=== PATIENT | male | born 1975 | race Caucasian/White ===

== ENCOUNTER 2024-01-14 07:23 | Day surgery (SDC) | payer OTHER, MEDICAID ==
[~2024-01-14] VITALS: Ht 180.3 cm; Wt 81.6 kg
[2024-01-14] MEDS ORDERED: SIMETHICONE 40 MG/0.6 ML ML ONE (07:30)
[2024-01-14] MEDS ORDERED: MEPERIDINE 100 MG INJ. 100 MG/ML VIAL ONE (07:31)
[2024-01-14] MEDS ORDERED: MIDAZOLAM HCL 5 MG/5 ML VIAL ONE ×3 (07:31→09:06)
[2024-01-14] MEDS ORDERED: fentaNYL CITRATE/PF 100 MCG/2 ML AMP ONE ×2 (07:57→08:21)
[2024-01-14] MEDS ORDERED: DIPHENHYDRAMINE INJ 50 MG/ML VIAL ONE (08:23)
[2024-01-14 10:40] VITALS: O2SAT 97
[2024-01-14 18:07] VITALS: BP_SYST 148; PULSE 77; RESP 17
== END 2024-01-14 11:17 | disposition home or self-care (01) ==
LOC: SGI 07:23 → SMU 07:24 → SGI 11:17
PROVIDERS: ATTEND Student in an Organized Health Care Education/Training Program
DX: R19.7 Diarrhea, unspecified (principal); D12.3 Benign neoplasm of transverse colon; K29.50 Unspecified chronic gastritis without bleeding; K31.A0 Gastric intestinal metaplasia, unspecified; R14.0 Abdominal distension (gaseous); D64.9 Anemia, unspecified; K29.80 Duodenitis without bleeding; K64.4 Residual hemorrhoidal skin tags; K64.8 Other hemorrhoids; I12.0 Hypertensive chronic kidney disease with stage 5 chronic kidney disease or end stage renal disease; E11.22 Type 2 diabetes mellitus with diabetic chronic kidney disease; N18.6 End stage renal disease; Z80.0 Family history of malignant neoplasm of digestive organs; Z79.899 Other long term (current) drug therapy
CPT/HCPCS: 45385; 43239; 82948; 88305; 88312; 88313; 99152; 99153; G0378; J1200; J2250; J3010; J2175